=== PATIENT | female | born 1965 | race African-American/Black ===

== ENCOUNTER 2016-12-28 17:05 | Emergency (ER) | payer BC, OTHER ==
[2016-12-28] MEDS ORDERED: Ibuprofen 800 MG TAB ONE (17:23)
== END 2016-12-28 19:10 | disposition home or self-care (01) ==
LOC: NAV ERS 17:05
DX: J02.9 Acute pharyngitis, unspecified (principal); E78.5 Hyperlipidemia, unspecified; E11.9 Type 2 diabetes mellitus without complications; I10 Essential (primary) hypertension; Z79.899 Other long term (current) drug therapy; Z79.84 Long term (current) use of oral hypoglycemic drugs
CPT/HCPCS: 87081; 87430; 99283